=== PATIENT | female | born 1970 | race Caucasian/White ===

== ENCOUNTER 2017-05-22 21:12 | Emergency (ER) | payer BC, OTHER ==
[~2017-05-22] VITALS: Ht 167.6 cm; Wt 99.8 kg
[2017-05-22] MEDS ORDERED: cloNIDine HCL 0.1 MG TAB ONE ×2 (21:22→23:28)
[2017-05-22 22:07] LABS: Basophils # (auto) 0.1 uL; Mean Platelet Volume 7.9 fL (6.9-10.8); Monocytes # (auto) 0.7 uL
[2017-05-22 22:08] LABS: Basophils % (auto) 1.3 % (0.0-2.0); Eosinophils # (auto) 0.2 uL; Eosinophils % (auto) 2.3 % (0.0-7.0); Hematocrit 38.6 % (36.0-46.0); Hemoglobin 12.7 g/dL (12.2-16.2); Lymphocytes # (auto) 2.8 uL; Lymphocytes % (auto) 30.8 % (10.0-50.0); Mean Corpuscular Hemoglobin 26.2 pg (28.0-32.0); Mean Corpuscular Hgb Conc. 32.9 g/dL (32.0-36.0); Mean Corpuscular Volume 79.8 fL (80.0-100.0); Monocytes % (auto) 8.3 % (0.0-12.0); Neutrophils # (auto) 5.2 uL; Neutrophils % (auto) 57.3 % (37.0-80.0); Platelet Count (auto) 347 10^3/uL (140-450); Red Cell Distribution Width 16.4 % (11.8-14.3)
[2017-05-22 22:31] LABS: Albumin 3.8 g/dL (3.4-5.0); Bilirubin, Total 0.2 mg/dL (0.2-1.0); Calcium 8.9 mg/dL (8.5-10.1); Potassium 3.7 mmol/L (3.5-5.1); Total Protein 7.7 g/dL (6.4-8.2)
[2017-05-22] MEDS ORDERED: cloNIDine HCL 0.1 MG TAB PO ONE (23:45)
[2017-05-23] MEDS ORDERED: HYDROcodone-ACET 10/325MG TAB PO ONE (00:15)
[2017-05-23] MEDS ORDERED: LISINOPRIL 20 MG TAB ONE (00:30)
[2017-05-23] MEDS ORDERED: LORazepam 0.5 MG TAB ONE (00:30)
[2017-05-23] MEDS ORDERED: LORazepam 0.5 MG TAB PO ONE (00:45)
[2017-05-23] MEDS ORDERED: LISINOPRIL 20 MG TAB PO ONE (00:45)
[2017-05-23 01:06] VITALS: BP 152/72
== END 2017-05-23 01:12 | disposition home or self-care (01) ==
LOC: ER 21:12
DX: I10 Essential (primary) hypertension (principal); G43.909 Migraine, unspecified, not intractable, without status migrainosus; R42 Dizziness and giddiness; F17.210 Nicotine dependence, cigarettes, uncomplicated; R53.1 Weakness; Z90.49 Acquired absence of other specified parts of digestive tract
CPT/HCPCS: 36415; 70450; 80053; 84702; 85025